=== PATIENT | male | born 1940 | race Two or more races ===

== ENCOUNTER 2021-05-03 03:06 | Inpatient (IN) | payer MEDICARE, OTHER ==
[~2021-05-03] VITALS: Ht 167.6 cm; Wt 61.7 kg
--- NOTE | 2021-05-03 03:17 | NUR ---
BG 155
--- NOTE | 2021-05-03 03:30 | NUR ---
PATIENT BIBRA 60 FROM HOME C/O LOW BG 50'S AT HOME. GIVEN D10 250MLS CERAMIC COATER MACHINE. PATIENT IS A/O X 4, RR EVEN AND UNLABORED, NO SOB NOTED. PATIENT CONNECTED TO CARDIAC AND POX MONITOR.
--- NOTE | 2021-05-03 03:42 | NUR ---
ekg done at bedside
--- NOTE | 2021-05-03 03:48 | NUR ---
COVID ANTIGEN SWAB COLLECTED AND SENT TO LAB. TAXONOMIST AT BEDSIDE
[2021-05-03 04:05] LABS: BASOPHILS # (AUTO) 0.1 K/uL (0.0-0.2); BASOPHILS % (AUTO) 0.5 % (0.0-2.0); EOSINOPHILS % (AUTO) 0.6 % (0.0-6.0); HEMATOCRIT 43 % (39-51); HEMOGLOBIN 14.3 g/dL (13.5-17.5); LYMPHOCYTES # (AUTO) 1.7 K/uL (0.8-4.8); LYMPHOCYTES % (AUTO) 13.9 % (20.0-44.0); MEAN CORPUSCULAR HGB CONC 34 g/dl (31.0-36.0); MEAN CORPUSCULAR VOLUME 91 fL (80-96); MONOCYTES # (AUTO) 0.7 K/uL (0.1-1.30); NEUTROPHILS # (AUTO) 9.7 K/uL (1.8-8.9); PLATELET COUNT (AUTO) 217 K/uL (150-450); RED BLOOD CELL COUNT(AUTO) 4.69 MIL/uL (4.5-6.0); WHITE BLOOD COUNT (AUTO) 12.3 K/uL (4.3-11.0)
[2021-05-03 04:15] LABS: CALCIUM, SERUM 7.9 mg/dL (8.5-10.1); CARBON DIOXIDE 24 mmol/L (21-32); CHLORIDE 99 mmol/L (98-107); CREATININE 1.7 mg/dL (0.6-1.3); GLUCOSE 136 mg/dL (74-106); POTASSIUM 3.5 mmol/L (3.5-5.1); SODIUM SERUM 136 mmol/L (136-145); UREA NITROGEN, BLOOD 19 mg/dL (7-18)
[2021-05-03 04:27] LABS: D-DIMER 1.1 mg/L(FEU (0.17-0.50)
[2021-05-03 04:28] LABS: ALANINE AMINOTRANSFERASE 23 U/L (12-78); ALBUMIN 3.6 g/dL (3.4-5.0); ALKALINE PHOSPHATASE 65 U/L (46-116); ASPARTATE AMINOTRANSFERASE 13 U/L (15-37); BILIRUBIN,DIRECT 0.1 mg/dL (0.0-0.2); BILIRUBIN,TOTAL 0.3 mg/dL (0.2-1.0); TOTAL PROTEIN, SERUM 7.6 g/dL (6.4-8.2)
[2021-05-03] MEDS ORDERED: ASPIRIN 81 MG TAB.CHEW ONE (05:09)
[2021-05-03] MEDS ORDERED: NITROGLYCERIN PACKET 1 GM PACKET ONE (05:09)
[2021-05-03] MEDS ORDERED: ASPIRIN 81 MG TAB.CHEW PO ONE (05:30)
[2021-05-03] MEDS ORDERED: NITROGLYCERIN PACKET 1 GM PACKET TD ONE (05:30)
[2021-05-03] MEDS ORDERED: ENOXAPARIN SODIUM 60 MG/0.6 ML DISP.SYRIN SQ ONE ×2 (05:40→06:00)
[2021-05-03] MEDS ORDERED: SITA1TAB2 PO (07:02)
[2021-05-03] MEDS ORDERED: METO100T14 PO (07:02)
[2021-05-03] MEDS ORDERED: LOSA50TA39 PO (07:02)
[2021-05-03] MEDS ORDERED: FERR325T23 PO (07:02)
[2021-05-03] MEDS ORDERED: EZET10TA32 PO (07:02)
--- NOTE | 2021-05-03 07:21 | NUR ---
RECEIVED REPORT FROM MARIO CH FOR [facility]. PT IS AAOX3, NOT IN RESPIRATORY DISTRESS, V/S STABLE, KEPT RESTED AND COMFORTABLE. WILL CONTINUE TO MONITOR.
--- NOTE | 2021-05-03 08:20 | NUR ---
still waiting on authorization to admit from [facility]
--- NOTE | 2021-05-03 09:59 | NUR ---
ROOM 307-1
--- NOTE | 2021-05-03 10:14 | NUR ---
REPORT GIVEN TO MARIO LINDA FOR D[facility]K.
--- NOTE | 2021-05-03 10:20 | NUR ---
PLATFORM INSPECTORBASEBALL WINDER NOTES PT CAME IN FROM ER. REPORT RECEIVED FROM OLIVE MCINTOSH. PT IS ALERT AND ORIENTED X , KHMER AND ROMANIAN SPEAKING. NO S/SX OF DISTRESS NOTED. NO SOB. PT COMPLAINED OF SOME PAIN ABOVE ABDOMEN AND STATES "I HAVE PAIN BECAUSE I AM HUNGRY." BREATHING IS LABORED, ON ROOM AIR TOLERATING WELL. EXTERNAL RENAL NURSE PLACED ON PATIENT WITH READING ON MONITOR OF SR IN 70'S. ORIENTED PT TO UNIT, STAFF AND CALL LIGHT. IV ACCESS LAC#20 PATENT AND INTACT. SAFETY MEASURES IN PLACE WITH BED LOW AND LOCKED WITH SIDE RAILS UP X 2. WILL CONTINUE TO MONITOR PATIENT THROUGHOUT SHIFT.
[2021-05-03] MEDS ORDERED: ZOLPIDEM TARTRATE 5 MG TABLET PO PRN (10:30)
[2021-05-03] MEDS ORDERED: MAGNESIUM HYDROXIDE 30 ML UDC PO PRN (10:30)
[2021-05-03] MEDS ORDERED: Z GUARD REMEDY 4 OZ OINT TP PRN (10:30)
[2021-05-03] MEDS ORDERED: MAG HYDROX/AL HYDROX/SIMETH 30 ML UDC PO PRN (10:30)
[2021-05-03] MEDS ORDERED: ACETAMINOPHEN 325 MG TABLET PO PRN (10:30)
[2021-05-03] MEDS ORDERED: MORPHINE SULFATE INJ 2 MG/ML DISP.SYRIN IV PRN (10:30)
[2021-05-03] MEDS ORDERED: ONDANSETRON HCL/PF 4 MG/2 ML VIAL IVP PRN (10:30)
--- NOTE | 2021-05-03 12:49 | NUR ---
EQUIP TECH NOTE PT WAS SEEN BY DR. AYDEN SYLVESTER, HVAC REFRIGERATION TECHNICIAN. NEW ORDERS RECEIVED FOR PCR NOVEL COVID TEST; ORDERS READ BACK AND CARRIED OUT.
--- NOTE | 2021-05-03 14:00 | NUR ---
TELE TRANSFER NOTES PT WAS TRANSFERRED TO BED 120-1. REPORT GIVEN TO MARIO BARBA. PT VITAL SIGNS STABLE.
--- NOTE | 2021-05-03 18:57 | NUR ---
RN NOTE RECEIVED PT FROM [facility]. PT NOT IN DISTRESS. NO COMPLAINTS OF PAIN AND DISCOMFORT. IN ROOM AIR, V/S STABLE. PT IS AMBULATORY WITH ASSIST X1. PT HAS MEDICAL HX OF GLAUCOMA AND HAS IMPAIRED VISION. WILL ENDORSE TO NEXT SHIFT RN.
[2021-05-03] MEDS ORDERED: DEXTROSE 50%-WATER 50 ML DISP.SYRIN IV PRN (19:00)
--- NOTE | 2021-05-03 19:21 | NUR ---
RN NOTE MD MADE ROUTINE ROUNDS, WITH VERBAL ORDER TO START ON MODERATE SLIDING SCALE, ORDER CARRIED OUT. MD MADE AWARE OF HOME MEDS RECONCILIATION.
--- NOTE | 2021-05-03 19:54 | NUR ---
RN OPENING NOTES RECEIVED CARE OF PATIENT WHILE PATIENT IN BED, A/O X4, [place] PEAKING, ABLE TO VERBALIZE NEEDS. PATIENT IS VISUALLY IMPAIRED, NEEDS MAXIMUM ASSISTANCE FOR ACTIVITIES OF DAILY LIVING. PATIENT DOES NOT COMPLAIN OF PAIN OR DISCOMFORT AT THIS TIME. ON ROOM AIR, WITH NO SOB NOTED, O2 SAT IS 97% AT THIS TIME. ON TELE MONITOR, SR WITH HR OF 75 AT THIS TIME. NO SIGNIFICANT FINDINGS UPON INITIAL NURSING ASSESSMENTS. ALL SAFETY MEASURES IMPLEMENTED. WILL CONTINUE TO MONITOR PATIENT FOR ANY CHANGES.
[2021-05-03 20:00] VITALS: BP 144/73
[2021-05-03] MEDS: BLOOD SUGAR DIAGNOSTIC 1 EACH STRIP VI SCH (22:54)
[2021-05-03] MEDS: *INSULIN REGULAR(HUMULIN R)HUM 100 UNIT/ML VIAL SQ PRN (23:03)
[2021-05-04] VITALS: BP 127/61
[2021-05-04 04:00] VITALS: BP 149/88
--- NOTE | 2021-05-04 07:24 | NUR ---
RN CLOSING NOTES ENDORSED CARE OF PATIENT WHILE PATIENT IN BED, A/O X4, MEXICAN PEAKING, ABLE TO VERBALIZE NEEDS. PATIENT IS VISUALLY IMPAIRED, NEEDS MAXIMUM ASSISTANCE FOR ACTIVITIES OF DAILY LIVING. PATIENT DOES NOT COMPLAIN OF PAIN OR DISCOMFORT AT THIS TIME. ON ROOM AIR, WITH NO SOB NOTED, O2 SAT IS 95% AT THIS TIME. ON TELE MONITOR, SINUS TACH WITH HR OF 105 AT THIS TIME. NO SIGNIFICANT FINDINGS UPON ALL NURSING ASSESSMENTS. ALL SAFETY MEASURES IMPLEMENTED. ENDORSED TO DAY SHIFT NURSE FOR DIRK.
--- NOTE | 2021-05-04 07:31 | NUR ---
RN OPENING NOTES; PT IN BED IN SUPINE POS. A/OX2-3, PT KHMER SPEAKING. PT IS AMB. WITH ASSISTANCE. NO C/O PAIN AT THIS TIME. NO SOB OR DISTRESS NOTED. MONTSERRAT #20 NOTED, FLUSHED, WITH NO SIGNS OF INFILTRATION. ALL SAFETY MEASURES RENDERED, BED LOCKED IN LOWEST POS. SIDERAILSX2 WITH CALL LIGHT WITHIN REACH. WILL CONTINUE TO MONITOR.
[2021-05-04] MEDS: BLOOD SUGAR DIAGNOSTIC 1 EACH STRIP VI SCH ×4 (07:50→22:58)
[2021-05-04] MEDS: INSULIN REGULAR, HUMAN 100 UNIT/ML 3 ML VIAL SQ PRN ×4 (07:50→23:37)
[2021-05-04 08:00] VITALS: BP 154/84
[2021-05-04] MEDS: PANTOPRAZOLE 40 MG TABLET.DR PO SCH (08:02)
[2021-05-04] MEDS: ASPIRIN 81 MG TAB.CHEW PO SCH (08:02)
[2021-05-04 08:21] LABS: BASOPHILS % (AUTO) 0.3 % (0.0-2.0); EOSINOPHILS % (AUTO) 0.2 % (0.0-6.0); HEMATOCRIT 41 % (39-51); HEMOGLOBIN 14.2 g/dL (13.5-17.5); LYMPHOCYTES # (AUTO) 1.3 K/uL (0.8-4.8); LYMPHOCYTES % (AUTO) 15.3 % (20.0-44.0); MEAN CORPUSCULAR HGB CONC 34 g/dl (31.0-36.0); MEAN CORPUSCULAR VOLUME 90 fL (80-96); MONOCYTES # (AUTO) 0.6 K/uL (0.1-1.30); MONOCYTES % (AUTO) 6.8 % (2.0-12.0); NEUTROPHILS # (AUTO) 6.4 K/uL (1.8-8.9); NEUTROPHILS % (AUTO) 77.4 % (43.0-81.0); PLATELET COUNT (AUTO) 220 K/uL (150-450); RED BLOOD CELL COUNT(AUTO) 4.62 MIL/uL (4.5-6.0); WHITE BLOOD COUNT (AUTO) 8.3 K/uL (4.3-11.0)
[2021-05-04 09:21] LABS: CALCIUM, SERUM 8.8 mg/dL (8.5-10.1); CARBON DIOXIDE 24 mmol/L (21-32); CHLORIDE 99 mmol/L (98-107); CREATININE 1.6 mg/dL (0.6-1.3); GLUCOSE 205 mg/dL (74-106); MAGNESIUM 1.9 mg/dL (1.8-2.4); PHOSPHORUS 2.9 mg/dL (2.5-4.9); POTASSIUM 4.2 mmol/L (3.5-5.1); SODIUM SERUM 135 mmol/L (136-145); UREA NITROGEN, BLOOD 18 mg/dL (7-18)
[2021-05-04 10:25] LABS: CHOLESTEROL 195 mg/dL (<200); HDL CHOLESTEROL 44 mg/dL (40-60); LDL 132 mg/dL (0-99); TRIGLYCERIDES 92 mg/dL (30-150)
[2021-05-04 12:00] VITALS: BP 148/86
[2021-05-04 16:00] VITALS: BP 113/61
[2021-05-04] MEDS: METOPROLOL SUCCINATE 50 MG TAB.SR.24H PO SCH (16:21)
--- NOTE | 2021-05-04 18:40 | NUR ---
RN CLOSING NOTES; PT IN BED IN SUPINE POS. RESTING. PT A/OX2-3. CAN MAKE HIS NEEDS KNOWN. PT HAS A HARD TIME SEEING, AND NEEDS ASSISTANCE TO THE RESTROOM. PT NEEDS CONSTANT REORIENTATION OF WHERE HE IS. ALL MEDICATIONS TAKEN AND TOLERATED WELL. NO EPISODES OF HYPOGLYCEMIA. INSULIN COVERAGE GIVEN ORDERED. PT KEPT CLEAN, DRY AND COMFORTABLE. ALL SAFETY MEASURES DONE, BED IN LOWEST POS. LOCKED, SIDE RAILSX3 WITH CALL LIGHT WITHIN REACH. WILL ENDORSE TO ACCOUNT FINANCIAL MANAGER RN. NO SIGNIFICANT CHANGES TO PT HEALTH STATUS DURING SHIFT.
--- NOTE | 2021-05-04 19:27 | NUR ---
RN OPENING NOTES RECEIVED CARE OF PATIENT WHILE PATIENT IN BED, A/O X4, [place] PEAKING, ABLE TO VERBALIZE NEEDS. PATIENT IS VISUALLY IMPAIRED, NEEDS MAXIMUM ASSISTANCE FOR ACTIVITIES OF DAILY LIVING. PATIENT DOES NOT COMPLAIN OF PAIN OR DISCOMFORT AT THIS TIME. ON ROOM AIR, WITH NO SOB NOTED, O2 SAT IS 95% AT THIS TIME. ON TELE MONITOR, SR WITH HR OF 95 AT THIS TIME. NO SIGNIFICANT FINDINGS UPON INITIAL NURSING ASSESSMENTS. FALL RISK PRECAUTIONS PUT IN PLACE. ALL SAFETY MEASURES IMPLEMENTED. WILL CONTINUE TO MONITOR PATIENT FOR ANY CHANGES.
[2021-05-04 20:00] VITALS: BP 142/77
[2021-05-04] MEDS: ATORVASTATIN 40 MG TABLET PO SCH (22:58)
[2021-05-05] VITALS: BP 140/80
[2021-05-05 04:00] VITALS: BP 129/75
--- NOTE | 2021-05-05 07:29 | NUR ---
RN CLOSING NOTES ENDORSED CARE OF PATIENT WHILE PATIENT IN BED, A/O X4. PATIENT DOES NOT COMPLAIN OF PAIN OR DISCOMFORT AT THIS TIME. PATIENT IS VISUALLY IMPAIRED, NEEDS MAXIMUM ASSISTANCE FOR ACTIVITIES OF DAILY LIVING. ON ROOM AIR, WITH NO SOB NOTED, O2 SAT IS 97% AT THIS TIME. ON TELE MONITOR, SR WITH HR OF 83 AT THIS TIME. NO SIGNIFICANT FINDINGS UPON ALL NURSING ASSESSMENTS. ALL SAFETY MEASURES IMPLEMENTED. ALL APPROPRIATE ISOLATION AND FALL RISK PRECAUTIONS PUT IN PLACE. ENDORSED TO DAY SHIFT NURSE FOR DIRK.
--- NOTE | 2021-05-05 07:30 | NUR ---
RN OPENING NOTES; PT IN BED IN SUPINE POS. A/OX2-3, PT UKRAINIAN SPEAKING. PT IS AMB. WITH ASSISTANCE. PT HAS DIFFICULTY SEEING. NO C/O PAIN AT THIS TIME. NO SOB OR DISTRESS NOTED. MONTSERRAT #20 NOTED, FLUSHED, WITH NO SIGNS OF INFILTRATION. ALL SAFETY MEASURES RENDERED, BED LOCKED IN LOWEST POS. SIDERAILSX2 WITH CALL LIGHT WITHIN REACH. WILL CONTINUE TO MONITOR.
[2021-05-05] MEDS: BLOOD SUGAR DIAGNOSTIC 1 EACH STRIP VI SCH ×4 (07:34→21:43)
[2021-05-05] MEDS: PANTOPRAZOLE 40 MG TABLET.DR PO SCH (07:55)
[2021-05-05 07:58] LABS: BASOPHILS % (AUTO) 0.5 % (0.0-2.0); EOSINOPHILS % (AUTO) 1.1 % (0.0-6.0); HEMATOCRIT 40 % (39-51); HEMOGLOBIN 13.7 g/dL (13.5-17.5); LYMPHOCYTES # (AUTO) 1.9 K/uL (0.8-4.8); LYMPHOCYTES % (AUTO) 21.5 % (20.0-44.0); MEAN CORPUSCULAR HGB CONC 34 g/dl (31.0-36.0); MEAN CORPUSCULAR VOLUME 91 fL (80-96); MONOCYTES # (AUTO) 0.9 K/uL (0.1-1.30); MONOCYTES % (AUTO) 9.5 % (2.0-12.0); NEUTROPHILS % (AUTO) 67.4 % (43.0-81.0); PLATELET COUNT (AUTO) 214 K/uL (150-450); RED BLOOD CELL COUNT(AUTO) 4.44 MIL/uL (4.5-6.0)
[2021-05-05 08:00] VITALS: BP 159/71
[2021-05-05] MEDS: INSULIN REGULAR, HUMAN 100 UNIT/ML 3 ML VIAL SQ PRN ×3 (08:00→16:30)
[2021-05-05] MEDS: ASPIRIN 81 MG TAB.CHEW PO SCH (08:00)
[2021-05-05 08:52] LABS: ALANINE AMINOTRANSFERASE 21 U/L (12-78); ALBUMIN 3.4 g/dL (3.4-5.0); ALKALINE PHOSPHATASE 62 U/L (46-116); ASPARTATE AMINOTRANSFERASE 16 U/L (15-37); BILIRUBIN,TOTAL 0.5 mg/dL (0.2-1.0); CALCIUM, SERUM 8.3 mg/dL (8.5-10.1); CARBON DIOXIDE 24 mmol/L (21-32); CHLORIDE 99 mmol/L (98-107); CREATININE 1.7 mg/dL (0.6-1.3); GLUCOSE 214 mg/dL (74-106); MAGNESIUM 2.2 mg/dL (1.8-2.4); PHOSPHORUS 3.9 mg/dL (2.5-4.9); POTASSIUM 4.4 mmol/L (3.5-5.1); SODIUM SERUM 135 mmol/L (136-145); TOTAL PROTEIN, SERUM 7.2 g/dL (6.4-8.2); UREA NITROGEN, BLOOD 20 mg/dL (7-18)
[2021-05-05 09:11] LABS: CREATINE KINASE, TOTAL 118 U/L (39-308)
[2021-05-05 12:00] VITALS: BP 157/79
[2021-05-05 16:00] VITALS: BP 156/82
[2021-05-05] MEDS: METOPROLOL SUCCINATE 50 MG TAB.SR.24H PO SCH (16:26)
--- NOTE | 2021-05-05 16:31 | NUR ---
RN NOTES; B/S TAKEN WITH RESULT OF 97. NO COVERAGE NEEDED PER SLIDING SCALE. NO COVERAGE NEEDED. WILL CONTINUE TO MONITOR.
--- NOTE | 2021-05-05 19:04 | NUR ---
RN CLOSING NOTES; PT IN BED IN SUPINE POS. RESTING. PT A/OX2 GUAMANIAN SPEAKING. CAN MAKE HIS NEEDS KNOWN. PT HAS A HARD TIME SEEING, AND NEEDS ASSISTANCE TO THE RESTROOM. ALL MEDICATIONS TAKEN AND TOLERATED WELL. NO EPISODES OF HYPOGLYCEMIA. INSULIN COVERAGE GIVEN ORDERED. PT KEPT CLEAN, DRY AND COMFORTABLE. ALL SAFETY MEASURES DONE, BED IN LOWEST POS. LOCKED, SIDE RAILSX3 WITH CALL LIGHT WITHIN REACH. WILL ENDORSE TO MANAGER TRAINING AND DEVELOPMENT RN. NO SIGNIFICANT CHANGES TO PT HEALTH STATUS DURING SHIFT.
--- NOTE | 2021-05-05 19:45 | NUR ---
RN NOTE PT RECEIVED IN BED. PT IS ON ROOM AIR SHOWING NO S/S OF RESP DISTRESS/SOB. BREATHING EVEN AND UNLABORED. PT IS ALERT AND ORIENTED X3, LITHUANIAN SPEAKING. ON BEAD FILLER SHOWING NSR. ON CARDIAC DIET. IV ACCESS NOTED ON RIGHT UPPER ARM #20. LINE FLUSHED, PATENT, AND INTACT WITH NO SIGNS OF INFILTRATION. ALL SAFETY MEASURES IMPLEMENTED. CALL LIGHT WITHIN REACH. BED ALARM ON. BED LOCKED AND IN LOWEST POSITION. SIDE RAILS UP. WILL CONTINUE TO MONITOR AND ASSESS FOR ANY CHANGES DURING SHIFT.
[2021-05-05 20:00] VITALS: BP 156/84
[2021-05-05] MEDS: ATORVASTATIN 40 MG TABLET PO SCH (21:30)
--- NOTE | 2021-05-05 21:43 | NUR ---
RN NOTE BS 346. WILL ADMINISTER INSULIN PER SLIDING SCALE.
[2021-05-05] MEDS: *INSULIN REGULAR(HUMULIN R)HUM 100 UNIT/ML VIAL SQ PRN (21:46)
[2021-05-06] VITALS: BP 141/77
[2021-05-06 04:00] VITALS: BP 151/84
--- NOTE | 2021-05-06 06:55 | NUR ---
RN NOTE NO CHANGES IN PT CONDITION DURING SHIFT. PT IS ON ROOM AIR SHOWING NO S/S OF RESP DISTRESS/SOB. BREATHING EVEN AND UNLABORED. PT IS ALERT AND ORIENTED X3, ALGERIAN SPEAKING. ON ALTERATION WORKROOM SUPERVISOR SHOWING NSR. IV ACCESS NOTED ON RIGHT UPPER ARM #20. LINE FLUSHED, PATENT, AND INTACT WITH NO SIGNS OF INFILTRATION. ALL DUE MEDS GIVEN ORDERED. PT KEPT CLEAN AND COMFORTABLE. ALL SAFETY MEASURES IMPLEMENTED. CALL LIGHT WITHIN REACH. BED ALARM ON. BED LOCKED AND IN LOWEST POSITION. SIDE RAILS UP. WILL ENDORSE TO MORNING SHIFT RN FOR DIRK.
--- NOTE | 2021-05-06 07:30 | NUR ---
RN NOTE PT RECEIVED IN BED. PT IS ON ROOM AIR SHOWING NO S/S OF RESP DISTRESS/SOB. BREATHING EVEN AND UNLABORED. PT IS ALERT AND ORIENTED X3, ON PBX INSTALLER SHOWING NSR. ON CARDIAC DIET. IV ACCESS NOTED ON RIGHT UPPER ARM #20. LINE FLUSHED, PATENT, AND INTACT WITH NO SIGNS OF INFILTRATION. ALL SAFETY MEASURES IMPLEMENTED. CALL LIGHT WITHIN REACH. BED ALARM ON. BED LOCKED AND IN LOWEST POSITION. SIDE RAILS UP. WILL CONTINUE TO MONITOR AND ASSESS FOR ANY CHANGES DURING SHIFT.
[2021-05-06] MEDS: BLOOD SUGAR DIAGNOSTIC 1 EACH STRIP VI SCH ×4 (07:58→22:26)
[2021-05-06] MEDS: INSULIN REGULAR, HUMAN 100 UNIT/ML 3 ML VIAL SQ PRN ×3 (07:59→17:01)
[2021-05-06 08:00] VITALS: BP 147/81
[2021-05-06] MEDS: PANTOPRAZOLE 40 MG TABLET.DR PO SCH (08:03)
[2021-05-06 08:40] LABS: BASOPHILS % (AUTO) 0.5 % (0.0-2.0); EOSINOPHILS % (AUTO) 0.8 % (0.0-6.0); HEMATOCRIT 42 % (39-51); HEMOGLOBIN 14.3 g/dL (13.5-17.5); LYMPHOCYTES # (AUTO) 1.9 K/uL (0.8-4.8); LYMPHOCYTES % (AUTO) 20.5 % (20.0-44.0); MEAN CORPUSCULAR HGB CONC 34 g/dl (31.0-36.0); MEAN CORPUSCULAR VOLUME 91 fL (80-96); MONOCYTES # (AUTO) 0.7 K/uL (0.1-1.30); MONOCYTES % (AUTO) 7.9 % (2.0-12.0); NEUTROPHILS # (AUTO) 6.5 K/uL (1.8-8.9); NEUTROPHILS % (AUTO) 70.3 % (43.0-81.0); PLATELET COUNT (AUTO) 227 K/uL (150-450); RED BLOOD CELL COUNT(AUTO) 4.67 MIL/uL (4.5-6.0); WHITE BLOOD COUNT (AUTO) 9.3 K/uL (4.3-11.0)
[2021-05-06] MEDS: ASPIRIN 81 MG TAB.CHEW PO SCH (08:40)
[2021-05-06 09:04] LABS: CALCIUM, SERUM 8.6 mg/dL (8.5-10.1); CARBON DIOXIDE 24 mmol/L (21-32); CHLORIDE 100 mmol/L (98-107); CREATININE 1.9 mg/dL (0.6-1.3); GLUCOSE 224 mg/dL (74-106); PHOSPHORUS 4.5 mg/dL (2.5-4.9); POTASSIUM 4.4 mmol/L (3.5-5.1); SODIUM SERUM 139 mmol/L (136-145); UREA NITROGEN, BLOOD 27 mg/dL (7-18)
[2021-05-06 12:00] VITALS: BP 134/73
[2021-05-06 14:07] LABS: *SPE ALPHA-1-GLOBULIN 0.2 g/dL (0.0-0.4); *SPE ALPHA-2-GLOBULIN 0.9 g/dL (0.4-1.0); *SPE BETA GLOBULIN 1.3 g/dL (0.7-1.3); *SPE M-SPIKE Not Observed g/dL (Not Observed)
[2021-05-06 16:00] VITALS: BP_SYST 134; BP_SYST 136; BP_DIAS 73; BP_DIAS 79
[2021-05-06] MEDS ORDERED: HOME MED MISCELLANEOUS XX SCH (16:30)
[2021-05-06] MEDS: FERROUS SULFATE (325 MG) 325 MG/TAB TABLET PO SCH (16:47)
[2021-05-06] MEDS: METOPROLOL SUCCINATE 50 MG TAB.SR.24H PO SCH (16:47)
--- NOTE | 2021-05-06 18:20 | NUR ---
RN NOTE NO CHANGES IN PT CONDITION DURING SHIFT. PT IS ON ROOM AIR SHOWING NO S/S OF RESP DISTRESS/SOB. BREATHING EVEN AND UNLABORED. PT IS ALERT AND ORIENTED X3,. ON PLATFORM SOFTWARE ENGINEER SHOWING NSR. IV ACCESS NOTED ON RIGHT UPPER ARM #20. LINE FLUSHED, PATENT, AND INTACT WITH NO SIGNS OF INFILTRATION. ALL DUE MEDS GIVEN ORDERED. PT KEPT CLEAN AND COMFORTABLE. ALL SAFETY MEASURES IMPLEMENTED. CALL LIGHT WITHIN REACH. BED ALARM ON. BED LOCKED AND IN LOWEST POSITION. SIDE RAILS UP. WILL ENDORSE TONOC SHIFT RN FOR DIRK.
--- NOTE | 2021-05-06 19:32 | NUR ---
RN OPENING NOTES: RECEIVED PATIENT IN BED, ALERT, AWAKE, ORIENTED X3 AND VERBALLY RESPONSIVE. ON ROOM AIR AND PT TOLERATED WELL. BREATHING EVEN AND UNLABORED. IV ACCESS ON RIGHT UPPER ARM #20G. INTACT AND PATENT WITH NO S/S OF INFILTRATION. NO C/O PAIN OR DISCOMFORT. FLAQUITO CUTE DISTRESS. ALL SAFETY MEASURES IN PLACE. BED ALARM ON. BED LOCKED AND IN LOWEST POSITION. SIDE RAILS UP X3. PLACE CALL LIGHT WITH IN REACH. WILL CONTINUE TO MONITOR.
[2021-05-06 20:00] VITALS: BP 144/80
[2021-05-06] MEDS: ATORVASTATIN 40 MG TABLET PO SCH (22:26)
[2021-05-06] MEDS: *INSULIN REGULAR(HUMULIN R)HUM 100 UNIT/ML VIAL SQ PRN (22:30)
--- NOTE | 2021-05-06 22:38 | NUR ---
RN NOTES: PT'S BLOOD SUGAR 254, 6 UNITS REGULAR INSULIN GIVEN PER SLIDING SCALE. NO S/S OF HYPER/HYPOGLYCEMIA. WILL CONTINUE TO MONITOR
[2021-05-07] VITALS: BP 137/82
[2021-05-07 04:00] VITALS: BP 130/68
--- NOTE | 2021-05-07 06:32 | NUR ---
RN CLOSING NOTES: PATIENT IN BED ASLEEP BUT EASILY AROUSABLE. ALERT, ORIENTED X3 AND VERBALLY RESPONSIVE. ON ROOM AIR, O2 SAT 96%. AND PT TOLERATED WELL. NO SOB, BREATHING EVEN AND UNLABORED. IV ACCESS ON RIGHT UPPER ARM #20G, INTACT AND PATENT WITH NO S/S OF INFILTRATION. NO C/O PAIN OR DISCOMFORT. NO ACUTE DISTRESS. COOPERATIVE WITH CARE. BILATERAL SOFT RESTRAINT WERE OFF ALL NIGHT. PT DIDN'T SHOW ANY UNUSUAL BEHAVIOR. DIDN'T TRIED TO GET UP FROM THE BED. ALL SAFETY MEASURES IN PLACE. BED ALARM ON. BED LOCKED AND IN LOWEST POSITION. SIDE RAILS UP X3. PLACE CALL LIGHT WITH IN REACH. WILL ENDORSE TO MORNING SHIFT.
--- NOTE | 2021-05-07 07:30 | NUR ---
RN NOTE PT RECEIVED IN BED. PT IS ON ROOM AIR SHOWING NO S/S OF RESP DISTRESS/SOB. BREATHING EVEN AND UNLABORED. PT IS ALERT AND ORIENTED X3, ON BREASTFEEDING EDUCATOR SHOWING NSR. ON CARDIAC DIET. IV ACCESS NOTED ON RIGHT UPPER ARM #20. LINE FLUSHED, PATENT, AND INTACT WITH NO SIGNS OF INFILTRATION. ALL SAFETY MEASURES IMPLEMENTED. CALL LIGHT WITHIN REACH. BED ALARM ON. BED LOCKED AND IN LOWEST POSITION. SIDE RAILS UP. WILL CONTINUE TO MONITOR AND ASSESS FOR ANY CHANGES DURING SHIFT.
--- NOTE | 2021-05-07 07:37 | NUR ---
PER [facility] COVID NEGATIVE.
[2021-05-07] MEDS: PANTOPRAZOLE 40 MG TABLET.DR PO SCH (07:43)
[2021-05-07] MEDS: BLOOD SUGAR DIAGNOSTIC 1 EACH STRIP VI SCH ×2 (07:43→12:50)
[2021-05-07] MEDS: INSULIN REGULAR, HUMAN 100 UNIT/ML 3 ML VIAL SQ PRN ×2 (07:46→12:52)
[2021-05-07 08:00] VITALS: BP 146/68
[2021-05-07] MEDS: FERROUS SULFATE (325 MG) 325 MG/TAB TABLET PO SCH (08:59)
[2021-05-07] MEDS: ASPIRIN 81 MG TAB.CHEW PO SCH (08:59)
[2021-05-07] MEDS ORDERED: EZETIMIBE 10 MG TABLET PO SCH (09:00)
[2021-05-07 12:00] VITALS: BP 140/74
== END 2021-05-07 16:25 | disposition home or self-care (01) | DRG 682 ==
LOC: ER 03:08 → TRANSITION 08:44 → TELE 10:14 → TELE-TD 14:56 → TELE1 15:09
PROVIDERS: ADMIT Student in an Organized Health Care Education/Training Program; ATTEND Nurse Practitioner Acute Care
DX: N17.9 Acute kidney failure, unspecified (principal); I21.A1 Myocardial infarction type 2; G93.41 Metabolic encephalopathy; I50.32 Chronic diastolic (congestive) heart failure; I13.0 Hypertensive heart and chronic kidney disease with heart failure and stage 1 through stage 4 chronic kidney disease, or unspecified chronic kidney disease; E11.649 Type 2 diabetes mellitus with hypoglycemia without coma; Z20.822 Contact with and (suspected) exposure to COVID-19; D72.829 Elevated white blood cell count, unspecified; E78.5 Hyperlipidemia, unspecified; E83.51 Hypocalcemia; N18.9 Chronic kidney disease, unspecified; E11.22 Type 2 diabetes mellitus with diabetic chronic kidney disease; I25.10 Atherosclerotic heart disease of native coronary artery without angina pectoris; D72.823 Leukemoid reaction; Z79.4 Long term (current) use of insulin
CPT/HCPCS: 36415; 71045-TC; 76770-TC; 80048-TC; 80053-TC; 80061-TC; 80076-TC; 82550-TC; 82962-TC; 83735-TC; 83880; 83970; 84100-TC; 84155; 84165; 84443-TC; 84484-TC; 85025-TC; 85378-TC; 85730-TC; 87081-TC; 93307-TC; 97112-TC; 97116-TC; 97530-TC; C9803; G0378; J1650; J1815; U0003